=== PATIENT | female | born 1935 | race Caucasian/White ===

== ENCOUNTER → 2020-03-22 15:08 | Outpatient (BNVA) | payer BC, SELFPAY | PROVIDERS: Family Provider Nurse Practitioner Family; Referring Provider Dermatology; Visit Provider Dermatology | DX: L57.0 Actinic keratosis (principal); L82.0 Inflamed seborrheic keratosis; L70.8 Other acne; Z85.828 Personal history of other malignant neoplasm of skin | CPT/HCPCS: 10040; 17000; 17003; 99203 ==

== ENCOUNTER 2020-04-07 10:36 | Outpatient (CLI) | payer BC, SELFPAY ==
--- NOTE | 2020-04-07 10:44 | USCV_ITS ---
Jyotsna Patiño Age: 85 Gender: F : 1935 Exam Date: 04/07/2020 10:46 Ordering Phys: Ese Gil NP Technologist: José Miguel Mendoza [place] [facility] [place]: [place] IN LOWER LEG HISTORY: Lower extremity pain. PROCEDURES: Venous duplex imaging was performed in only the right lower extremity. The following venous structures were evaluated: common femoral vein, profunda vein, proximal portion of the greater saphenous vein, superficial femoral vein, and the popliteal vein. In addition, the posterior tibial and peroneal trunk were evaluated. Serial compression, augmentation maneuvers, and spectral Doppler flow evaluation were performed. FINDINGS: Normal 2-D Doppler and augmentation and compressibility throughout the lower extremity venous structures. Additional imaging through the proximal calf veins also reveals no thrombus. Limited evaluation of the greater saphenous vein is patent with no thrombus. CONCLUSIONS No DVT right lower extremity. Dr. Kelly Paulino DO (Electronically Signed) Final Date: 07 April 2020 12:37 S
== END 2020-04-07 10:37 | disposition home or self-care (01) ==
LOC: RAD 10:42
PROVIDERS: Family Provider Nurse Practitioner Family; Visit Provider Nurse Practitioner Family
DX: M79.661 Pain in right lower leg (principal)
CPT/HCPCS: 93971

== ENCOUNTER 2020-05-29 12:40 | Outpatient (CLI) | payer MEDICARE, SELFPAY ==
--- NOTE | 2020-05-29 13:30 | USCV_ITS ---
Jyotsna Patiño Age: 85 Gender: F : 1935 Exam Date: 05/29/2020 13:11 Ordering Phys: Caleb Delgado DPM Technologist: Exam Location: [facility] – [place] Indication: DECREASED PEDAL PULSES RIGHT LEFT Brachial 158.00 mmHg Brachial 157.00 mmHg Pressure (mmHg) Waveform Pressure (mmHg) Waveform 177.00 Above Knee 161.00 174.00 Below Knee 173.00 157.00 FUR MIXER OPERATOR 154.00 158.00 DPA 151.00 1.00 Ankle/Brachial Index 0.97 123.00 Pre-Exercise Toe Pressure 111.00 0.70 Pre-Exercise Toe/Brachial Index 0.78 FINDINGS Normal resting ABIs bilaterally Normal resting TBI's bilaterally PVR waveforms showing blunting of the dicrotic notch CONCLUSIONS Some features of extensive arterial sclerosis with no significant arterial obstruction Dr Simran Rivera MD FACC (Electronically Signed) Final Date: 29 May 2020 17:53 S
== END 2020-05-29 12:41 | disposition home or self-care (01) ==
LOC: US 12:44
PROVIDERS: PCP Nurse Practitioner Family; Visit Provider Podiatrist Foot & Ankle Surgery
DX: R09.89 Other specified symptoms and signs involving the circulatory and respiratory systems (principal)
CPT/HCPCS: 93923

== ENCOUNTER → 2021-06-28 10:55 | Outpatient (BNVA) | payer MEDICARE, SELFPAY | PROVIDERS: PCP Nurse Practitioner Family; Visit Provider Family Medicine | DX: Z76.89 Persons encountering health services in other specified circumstances (principal); K21.9 Gastro-esophageal reflux disease without esophagitis; I10 Essential (primary) hypertension | CPT/HCPCS: 80053; 85025 ==

== ENCOUNTER 2021-10-10 09:15 | Outpatient (CLI) | payer MEDICARE, SELFPAY ==
--- NOTE | 2021-10-10 09:29 | XR_ITS ---
WS: [id number] XR shoulder RT min 2V* [id number] REASON FOR EXAM: PAIN IN RIGHT SHOULDER FINDINGS: No fracture or focal bone lesion. Significant narrowing of the acromial clavicular joint with subchondral sclerosis and small marginal osteophytes. Moderate narrowing of the glenohumeral joint. Significant degenerative cystic change in the humeral h ead including the biceps tuberosity. There is spurring of the glenoid and of the humeral head. 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 Moderate rotator cuff arthropathy.
== END 2021-10-10 09:16 | disposition home or self-care (01) ==
PROVIDERS: PCP Nurse Practitioner Family; Visit Provider Nurse Practitioner Family
DX: M19.011 Primary osteoarthritis, right shoulder (principal)
CPT/HCPCS: 73030

== ENCOUNTER → 2022-07-02 10:45 | Outpatient (BNVA) | payer MEDICARE, SELFPAY | PROVIDERS: PCP Family Medicine; Visit Provider Family Medicine | DX: K21.9 Gastro-esophageal reflux disease without esophagitis (principal); G47.62 Sleep related leg cramps; I10 Essential (primary) hypertension; L60.3 Nail dystrophy | CPT/HCPCS: 80053; 80061; 83735; 84443; 85025 ==

== ENCOUNTER → 2022-10-23 16:25 | Outpatient (BNVA) | payer MEDICARE, SELFPAY | PROVIDERS: PCP Family Medicine; Visit Provider Family Medicine | DX: D75.89 Other specified diseases of blood and blood-forming organs (principal); G47.62 Sleep related leg cramps; M25.511 Pain in right shoulder; M25.512 Pain in left shoulder; M54.2 Cervicalgia | CPT/HCPCS: 82607; 82746; 85651; 86140; 86431 ==

== ENCOUNTER → 2023-07-03 08:12 | Outpatient (BNVA) | payer MEDICARE, SELFPAY | PROVIDERS: PCP Family Medicine; Referring Provider Family Medicine; Visit Provider Nurse Practitioner | DX: M65.332 Trigger finger, left middle finger (principal) | CPT/HCPCS: 20600; 99204; J3301 ==

== ENCOUNTER → 2023-11-17 15:34 | Outpatient (BNVA) | payer MEDICARE, SELFPAY | PROVIDERS: PCP Family Medicine; Visit Provider Family Medicine | DX: G47.62 Sleep related leg cramps (principal); I10 Essential (primary) hypertension; D75.89 Other specified diseases of blood and blood-forming organs; K21.9 Gastro-esophageal reflux disease without esophagitis; R79.89 Other specified abnormal findings of blood chemistry; E83.42 Hypomagnesemia; E55.9 Vitamin D deficiency, unspecified | CPT/HCPCS: 80053; 82306; 82607; 82728; 82746; 83540; 83735; 84443; 85025; 85651; 86140 ==

== ENCOUNTER → 2023-12-09 13:23 | Outpatient (BNVA) | payer MEDICARE, SELFPAY | PROVIDERS: PCP Family Medicine; Visit Provider Dermatology | DX: L57.0 Actinic keratosis (principal); L82.0 Inflamed seborrheic keratosis; D23.5 Other benign neoplasm of skin of trunk; S51.812A Laceration without foreign body of left forearm, initial encounter; X58.XXXA Exposure to other specified factors, initial encounter; D22.5 Melanocytic nevi of trunk | CPT/HCPCS: 17000; 17110; 99213 ==

== ENCOUNTER → 2024-06-10 12:29 | Outpatient (BNVA) | payer MEDICARE, SELFPAY | PROVIDERS: PCP Family Medicine; Visit Provider Nurse Practitioner Family | DX: D48.5 Neoplasm of uncertain behavior of skin (principal); L57.0 Actinic keratosis; L82.0 Inflamed seborrheic keratosis; S51.812A Laceration without foreign body of left forearm, initial encounter; X58.XXXA Exposure to other specified factors, initial encounter; D23.5 Other benign neoplasm of skin of trunk; L81.4 Other melanin hyperpigmentation | CPT/HCPCS: 11102; 17000; 17110; 99213 ==

== ENCOUNTER → 2024-10-26 10:44 | Outpatient (BNVA) | payer MEDICARE, SELFPAY | PROVIDERS: PCP Family Medicine; Visit Provider Nurse Practitioner Family | DX: L70.8 Other acne (principal); L81.4 Other melanin hyperpigmentation; Z08 Encounter for follow-up examination after completed treatment for malignant neoplasm; Z86.007 Personal history of in-situ neoplasm of skin; Z09 Encounter for follow-up examination after completed treatment for conditions other than malignant neoplasm; Z87.2 Personal history of diseases of the skin and subcutaneous tissue; L82.0 Inflamed seborrheic keratosis; L29.89 Other pruritus | CPT/HCPCS: 17110; 99213 ==

== ENCOUNTER → 2024-10-28 12:22 | Outpatient (BNVA) | payer MEDICARE, SELFPAY | PROVIDERS: PCP Family Medicine; Visit Provider Family Medicine | DX: M54.2 Cervicalgia (principal); M25.511 Pain in right shoulder; M25.512 Pain in left shoulder; I10 Essential (primary) hypertension; E55.9 Vitamin D deficiency, unspecified; K21.9 Gastro-esophageal reflux disease without esophagitis; G89.29 Other chronic pain; G47.62 Sleep related leg cramps | CPT/HCPCS: 80053; 82306; 84443; 85025; 85651; 86140 ==